=== PATIENT | female | born 1955 | race Caucasian/White ===

== ENCOUNTER → 2019-01-19 22:01 | Outpatient (CLI) | payer MEDICARE, SELFPAY ==
[2019-01-19 17:04] VITALS: BMI 22.3
[2019-01-19 22:40] LABS: Thyroid Stim Hormone (TSH) 2.03 uIU/mL (0.358-3.74)
== END ==
PROVIDERS: Referring Provider Nurse Practitioner; Visit Provider Nurse Practitioner
DX: L40.9 Psoriasis, unspecified (principal)
CPT/HCPCS: 84443

== ENCOUNTER 2021-12-17 15:00 | Outpatient (CLI) | payer MEDICARE, SELFPAY ==
--- NOTE | 2021-12-17 15:00 | POL_PTH ---
PATIENT: CASEY ARRIAGA LOC: [facility] U#:[id number] AGE/SX: 66/F ROOM: RE12/17/[address]: Dr. Janay George MD : 1955 BED: DIS: 12/17/2021 SPEC #: [id number] RECD: 12/18/21 15:37 STATUS: NITZA RELotus #: [id number] RENY: 12/17/21 15:[address]: Janay George DEPT: SURGICAL PATHOLOGY RECD BY: Vani Cameron ENTERED: 12/19/21 08:16 SP TYPE: Polyp OTHR DR: Inga Dockery Tissues: POLYP Procedures: Surgery Specimen Level IV HEADER OPERATION: Polypectomy PRE-OP DIAGNOSIS: Uterine polyp TISSUE SUBMITTED: Uterine polyp MICROSCOPIC DIAGNOSIS Uterine polyp, polypectomy: Consistent with inflamed benign endocervical polyp. See comment. MARC:nimo 12/19/2021 COMMENT The polyp shows extensive ulceration, acute and chronic inflammation and granulation tissue reaction. MICROSCOPIC DESCRIPTION Slides are reviewed. GROSS DESCRIPTION Received is one container labeled with the patient's name and not further designated. The specimen consists of a medley-pink polyp measuring 1.5 x 1 x 0.6 cm. The specimen is bisected and submitted entirely in one cassette. / SJ:rg 12/18/2021 :5 [facility]: [id number]
== END 2021-12-17 23:59 | disposition home or self-care (01) ==
PROVIDERS: Visit Provider Obstetrics & Gynecology
DX: N84.0 Polyp of corpus uteri (principal)
CPT/HCPCS: 88305

== ENCOUNTER 2021-12-24 12:15 | Outpatient (CLI) | payer MEDICARE, SELFPAY ==
--- NOTE | 2021-12-24 12:20 | US_ITS ---
STUDY: ULTRASOUND OF THE FEMALE PELVIS - COMPLETE REASON FOR EXAM: Female, 66 years old. uterine prolapse TECHNIQUE: Endovaginal. Transvaginal US was obtained to better visualized the ovaries. COMPARISON: None. FINDINGS: The uterus is anteverted and is in a midline position. The uterus measures 6.4 x 4 .8 cm. Normal uterine cervix. The endometrium measures 9 mm in thickness, and is fluid distended. There is thickened endometrium containing fluid and debris and calcifications. Calcification measures 6 x 5 mm.. There is no demonstrated myometrial mass. I.U.D. - The patient does not have an I.U.D. There is nonvisualization of the right ovary due to overlying bowel gas. The left ovary is visualized. The left ovary measures 1.6 x 1.7 cm. There is no left ovarian cyst or ovarian mass. There is no visualized left adnexal mass or complex lesion. There is normal arterial and normal venous vascularity. There is no fluid in the cul-de-sac. Urinary bladder volume is 329cc. US/Pelvic (Non ) IMPRESSION: There is endometrial thickening. This is abnormal for the patient''s age if she is postmenopausal. Direct visualization is recommended to exclude an underlying mass. During the examination, the uterus is prolapsed Electronically Signed: Warren Leija MD at 17:38 EDT ,
--- NOTE | 2021-12-24 12:20 | US_ITS ---
STUDY: ULTRASOUND OF THE FEMALE PELVIS - COMPLETE REASON FOR EXAM: Female, 66 years old. uterine prolapse TECHNIQUE: Endovaginal. Transvaginal US was obtained to better visualized the ovaries. COMPARISON: None. FINDINGS: The uterus is anteverted and is in a midline position. The uterus measures 6.4 x 4 .8 cm. Normal uterine cervix. The endometrium measures 9 mm in thickness, and is fluid distended. There is thickened endometrium containing fluid and debris and calcifications. Calcification measures 6 x 5 mm.. There is no demonstrated myometrial mass. I.U.D. - The patient does not have an I.U.D. There is nonvisualization of the right ovary due to overlying bowel gas. The left ovary is visualized. The left ovary measures 1.6 x 1.7 cm. There is no left ovarian cyst or ovarian mass. There is no visualized left adnexal mass or complex lesion. There is normal arterial and normal venous vascularity. There is no fluid in the cul-de-sac. Urinary bladder volume is 329cc. US/Transvaginal Non- IMPRESSION: There is endometrial thickening. This is abnormal for the patient''s age if she is postmenopausal. Direct visualization is recommended to exclude an underlying mass. During the examination, the uterus is prolapsed Electronically Signed: Warren Leija MD at 17:38 EDT ,
== END 2021-12-24 23:59 | disposition home or self-care (01) ==
LOC: OPUS 12:17
PROVIDERS: Visit Provider Obstetrics & Gynecology
DX: N81.4 Uterovaginal prolapse, unspecified (principal)
CPT/HCPCS: 76830; 76856

== ENCOUNTER 2021-12-31 12:35 | Outpatient (CLI) | payer MEDICARE, SELFPAY ==
--- NOTE | 2021-12-31 | EMB_PTH ---
PATIENT: CASEY ARRIAGA [id number] AGE/SX: 66/F ROOM: RE12/31/[address]: Dr. Janay George MD : 1955 BED: DIS: 12/31/2021 SPEC #: [id number] RECD: 12/31/21 12:32 STATUS: NITZA RELotus #: [id number] RENY: 12/31/21 00:[address]: Janay George DEPT: SURGICAL PATHOLOGY RECD BY: Vani Cameron ENTERED: 12/31/21 13:26 SP TYPE: ENDOM BX/C HARIS DR: Inga Dockery Tissues: Endometrium, NOS Procedures: Surgery Specimen Level IV HEADER OPERATION: Endometrial biopsy PRE-OP DIAGNOSIS: Thickened endometrium TISSUE SUBMITTED: Endometrial biopsy MICROSCOPIC DIAGNOSIS Endometrium, biopsy: Rare strips of benign superficial glandular mucosa. AM:nimo 01/01/2022 MICROSCOPIC DESCRIPTION Slides are reviewed. GROSS DESCRIPTION Received is one container labeled with the patient's name and not further designated. The specimen consists of multiple fragments of mucoid tissue that in aggregate measure 1 x 1 x 0.1 cm. The specimen is totally submitted in one cassette. / SJ:nimo 12/31/2021 TC:5 CPT: 59277
== END 2021-12-31 23:59 | disposition home or self-care (01) ==
LOC: LABSPEC 12:37
PROVIDERS: Referring Provider Obstetrics & Gynecology; Visit Provider Obstetrics & Gynecology
DX: R93.89 Abnormal findings on diagnostic imaging of other specified body structures (principal)
CPT/HCPCS: 88305

== ENCOUNTER → 2022-01-27 | Outpatient (CLI) | payer MEDICARE, SELFPAY ==
[2022-01-27 12:42] LABS: Absolute Lymphocyte Count 2.23 X10^3/uL (0.83-4.51); Absolute Neutrophil Count 3.5 X10^3/uL (2.0-7.7); Basophil# 0.05 X10^3/uL; Basophil% 0.8 % (0-1); Eosinophil# 0.27 X10^3/uL; Eosinophils% 4.1 % (0-5); Hematocrit 40.8 % (37-47); Hemoglobin 13.7 g/dL (12.0-15.0); Lymphocyte # 2.23 X10^3/ul (0.83-4.51); Lymphocyte % 33.6 % (19-41); Mean Corp Hgb Conc 33.6 g/dL (32-36); Mean Corpuscular Hgb 30.3 pg (27.0-32.0); Mean Corpuscular Volume 90.3 fL (81-99); Mean Platelet Vol. 10.8 fl (6.2-12.0); Monocyte# 0.62 X10^3/uL; Monocyte% 9.4 % (0-10); NRBC Flagged by Analyzer 0 % (0-5); Neutrophil # 3.45 X10^3/uL (2.7-7.7); Neutrophil % 51.9 % (47-70); Platelet Count 301 K/mm3 (150-450); RBC Distribution Width SD 42.5 fl (35.1-43.9); Red Blood Count 4.52 M/mm3 (4.2-5.4); White Blood Count 6.6 K/mm3 (4.4-11.0)
[2022-01-27 13:01] LABS: Magnesium 2.5 mg/dL (1.6-2.6)
[2022-01-27 13:07] LABS: ALB/GLOB Ratio 1.3 RATIO (0.9-2.4); AST(SGOT) 23 U/L (15-37); Alanine Aminotransfer ALT/SGPT 25 U/L (13-56); Alkaline Phosphatase 94 U/L (45-117); Anion Gap 5 (5-15); BUN 17 mg/dL (7-18); BUN/Creat Ratio 22.1 RATIO (10-20); Calcium,Total 8.9 mg/dL (8.5-10.1); Chloride 107 mmol/L (98-107); Creatinine, Serum 0.77 mg/dL (0.55-1.02); EST Glomerular Filtration Rate 79 mL/min (>60); Est Glom Filt Rate - Afr Amer 96 mL/min (>60); Globulin 3.1 g/dL (2.2-4.2); Glucose 98 mg/dL (74-106); Potassium 4.1 mmol/L (3.5-5.1); Protein, Total 7.1 g/dL (6.4-8.2); Sodium Level 140 mmol/L (136-145)
== END | disposition home or self-care (01) ==
LOC: LAB 11:59
PROVIDERS: Anesthesiology; Referring Provider Obstetrics & Gynecology; Visit Provider Obstetrics & Gynecology
DX: Z01.818 Encounter for other preprocedural examination (principal)
CPT/HCPCS: 36415; 80053; 83735; 85025; 86850; 86900; 86901

== ENCOUNTER 2022-02-03 15:38 | Observation (INO) | payer MEDICARE, SELFPAY ==
--- NOTE | 2022-01-27 12:18 | EKG12_ITS ---
Test Reason : PREOP Blood Pressure : / mmHG Vent. Rate : 077 BPM Atrial Rate : 077 BPM P-R Int : 132 ms QRS Dur : 074 ms QT Int : 390 ms P-R-T Axes : 069 046 039 degrees QTc Int : 441 ms Normal sinus rhythm Normal ECG Confirmed by BRAYAN GRANT, PATRICK ([id number]), editorial director RAN MILLIGAN ([id number]) on 01/28/2022 8:46:04 AM Referred By: PRISCILLA Confirmed By:PATRICK SCHMIDT MD
[2022-02-03] VITALS (11 sets, daily range): BP systolic 111–124; BP diastolic 64–77; PULSE 68–99; RESP 16–18; TEMP 36.2–36.9; O2SAT 94–100; BMI 26.3; BMI 26.4
[2022-02-03] MEDS: Lactated Ringers 1,000 ML 40 ML IV (06:39)
[2022-02-03] MEDS: Celecoxib 200 MG Capsule 400 MG PO (06:40)
[2022-02-03] MEDS: Acetaminophen 500 MG Tablet 1000 MG PO ×4 (06:40→23:26)
[2022-02-03] MEDS: Gabapentin 600 MG Tablet PO (06:40)
[2022-02-03] MEDS: Scopolamine 1mg/72hr Patch 1 PATCH TD (06:40)
[2022-02-03] MEDS: Enoxaparin 40 MG/0.4 ML Syringe SC (06:41)
--- NOTE | 2022-02-03 07:30 | HYST_PTH ---
PATIENT: CASEY ARRIAGA LOC: [facility] U#:[id number] AGE/SX: 67/F ROOM: MS308 RE02/03/[address]: Dr. Janay George MD : 1955 BED: 1 DIS: 02/04/2022 SPEC #: [id number] RECD: 02/03/22 10:11 STATUS: NITZA ISRAELLotus #: [id number] RENY: 02/03/22 07:[address]: Janay George DEPT: SURGICAL PATHOLOGY RECD BY: Vani Cameron ENTERED: 02/03/22 10:37 SP TYPE: HYSTERECT OTHR DR: Inga Dockery Tissues: Uterus, NOS Procedures: Surgery Specimen Level V HEADER OPERATION: ERAS, vaginal hysterectomy, salpingo-oophorectomy, repair PRE-OP DIAGNOSIS: Prolapse of uterus, thickened endometrium, stress incontinence, nocturia TISSUE SUBMITTED: Uterus, left fallopian tube and ovary MICROSCOPIC DIAGNOSIS Uterus, left fallopian tube and ovary, hysterectomy and left salpingo-oophorectomy: Cervix ? chronic cystic cervicitis. Endometrium ? focal simple endometrial hyperplasia without atypia. Endometrial polyp ? benign endometrial polyp with focal simple endometrial hyperplasia without atypia and cystic changes. Myometrium ? intramural leiomyomas. - Focal adenomyosis. Left fallopian tube - no pathologic diagnosis. Left ovary - no pathologic diagnosis. See comment. SJ:nimo 02/04/2022 COMMENT Focal complex hyperplasia without atypia is also noted. Please make reference to previous specimen ([id number]) endometrium, biopsy with diagnosis of ?rare strips of benign superficial glandular mucosa.? Case has been reviewed in consultation with Dr. Reynolds who concurs with the above diagnosis. IDC:AM MICROSCOPIC DESCRIPTION Slides are reviewed. GROSS DESCRIPTION Received in fixative is one container labeled with the patient's name and designated uterus, left fallopian tube and ovary. The specimen consists of a hysterectomy specimen consisting of uterus with cervix and detached fallopian tube and ovary identified as left fallopian tube and ovary. The uterus with cervix weighs 61 gm and measures 10 x 5 x 3 cm. The serosal surface is medley, glistening. The ectocervical mucosa is unremarkable. The external os is pinpoint in contour. The endocervical canal measures 4 cm in length and the endocervical mucosa is unremarkable. The triangular endometrial cavity measures up to 5 cm in length and 2 cm in width. A sessile endometrial polyp is noted in the anterior uterine wall measuring 1.5 x 1 x 0.5 cm. The myometrial wall underneath the polyp is not indurated. The rest of the endometrium measures 0.1 cm in thickness. Sections of the uterine wall reveal two nodular masses measuring 0.2 and 1 cm in greatest dimension. The uterine wall measures up to 1 cm in thickness. The fallopian tube measures 3.5 cm in length and 0.5 cm in diameter. The fimbrial end is identified. No tubo-ovarian adhesions are noted. Sections reveal unremarkable cut surfaces. The adjacent ovary measures 1.5 x 0.5 x 0.5 cm. Sections reveal unremarkable cut surfaces. [employer] sections are submitted in nine cassettes as follows: 1 - anterior cervix, 2 - posterior cervix, 3 & 4 - anterior uterine wall, entire endometrial polyp, 5 & 6 - posterior uterine wall, 7 - nodular masses, 8 - fallopian tube and ovary, 9 - rest of the ovary. The ovary is submitted in entirety. / MARC:nimo 02/03/2022 TC:5 CPT: 26319
--- NOTE | 2022-02-03 07:37 | PCM.HP.BLA ---
History and Physical Date of Admission: 02/03/22 Vital Signs 12/31/21 09:19 Height 5 ft 2 in Weight: 143 lb BMI 26.2 BP 132/88 H Intake Visit Reasons: EMB Chief Complaint: EMB Is patient in pain?: No Allergies aspirin Allergy (Severe, Verified 12/17/21 14:19) hives ciprofloxacin [From Cipro] Allergy (Intermediate, Verified 12/17/21 14:19) itching sulfamethoxazole [From Bactrim] Allergy (Intermediate, Verified 12/17/21 14:19) itching, rash trimethoprim [From Bactrim] Allergy (Intermediate, Verified 12/17/21 14:19) itching, rash Medications cholecalciferol (vitamin D3) 125 mcg (5,000 unit) tablet 5,000 unit PO DAILY 06/08/18 [History Confirmed 12/31/21] lactobacillus combination no.4 3 billion cell capsule 3,000 mmu cells PO DAILY 06/08/18 [History Confirmed 12/31/21] B-complex with vitamin C 1 tab PO DAILY 06/21/18 [History Confirmed 12/31/21] Triple [place] Complex PO 01/25/21 [History Confirmed 12/31/21] calcipotriene 0.005 % topical cream 1 applic TOPICAL DAILY #60 gm 01/25/21 [Rx Confirmed 12/31/21] halobetasol propionate 0.05 % topical cream 1 applic TOPICAL BID PRN #45 g 01/25/21 [Rx Confirmed 12/31/21] sambucus Black Elderberry PO 01/25/21 [History Confirmed 12/31/21] Is last menstrual period known: No Post menopausal: Yes Patient : No : No PFSH PFSH Medical History Eczema Migraines Psoriasis Surgical History H/O tubal ligation Family History Other Diabetes Heart disease Leukemia Thyroid disorder Social History household members: none current occupational status: retired Smoking Status: Never smoker alcohol intake: never substance use type: does not use what type of physical activity do you participate in: walking seatbelt use: always do you feel safe at home: Yes additional social history: Pregancy History 3 Elective abortions Hx Para 3 Spontaneous abortions Hx # Term Pregnancies Ectopic pregnancies Hx # Pregnancies Multiple births # of living children 3 HPI EMB Details: CASEY ARRIAGA is a 66 year old who presents for preop and emb. emb done due to thickened endometrium on us. preivous polyp WNL. Female Reproductive History Menopausal Symptoms: No night sweats ROS Const Constitutional: Reports system reviewed and no additional complaints, except as documented; Denies fatigue, headache(s) or night sweats ENT ENT: Reports system reviewed and no additional complaints, except as documented Cardio Card: Denies chest pain Resp Resp: Denies cough or dyspnea GI GI: Denies abdominal pain, bloating, change in stool character, constipation, fecal incontinence, nausea or vomiting : Reports prolapse symptoms, urinary incontinence and vaginal dryness; Denies nipple discharge, pelvic pain, sexual dysfunction, urinary frequency, urinary urgency, vaginal discharge, vaginal odor or vaginal pruritus Musc Musc: Reports back pain; Denies arthralgias or muscle weakness Skin Skin/Breast: Reports alopecia; Denies change in hair, dry skin, breast mass, breast pain, breast skin changes or nipple discharge Neuro Neuro: Reports system reviewed and no additional complaints, except as documented Psych Psych: Denies anxiety or depression Endo Endo: Denies cold intolerance, excessive sweating, heat intolerance or polydipsia Adithya/Lymph Hematologic/Lymphatic: Denies easy bleeding, Denies easy bruising and Denies lymphadenopathy Exam Const General: cooperative, healthy appearing, comfortable, no acute distress and well developed Orientation: alert [facility] Head: normal to inspection, normocephalic and atraumatic Ears: hearing grossly normal bilaterally and external ears normal Nose: external nose normal and nares normal Face and sinus: normal facial exam Neck Neck: normal visual inspection, full ROM, no lymphadenopathy and trachea midline Thyroid: thyroid normal Chest Chest palpation & inspection: normal inspection of the chest Resp Effort & Inspection: normal respiratory effort Auscultation: clear to auscultation bilaterally Cardio Rate: regular rate Rhythm: regular rhythm Heart Sounds: S1 normal and S2 normal GI Inspection: normal to inspection and non-distended Palpation: soft, no hepatosplenomegaly, no hepatomegaly, not rigid and nontender General: bladder normal to palpation External Female Exam: abnormal external appearance (atrophic introitus), normal appearance of the urethra and no lesions Urethra: normal appearance of the urethra Speculum Exam - Vagina: abnormal appearance of the vagina, normal vaginal discharge, vagina atrophic and no lesions Speculum Exam - Cervix: normal appearance of the cervix (polyp seen, removed without complications, silver nitrate) Bimanual Exam- Vagina & Uterus: normal bimanual exam, uterine size normal, bladder normal to palpation, uterine shape normal, uterine mobility normal and non-tender Bimanual Exam- Adnexa, other: normal adnexae, no masses, rectocele, cystocele and vaginal apex descent (complete procidentia) Pelvic Support: cystocele, rectocele and vaginal apex descent (complete procidentia) Musc Other: gross motor intact no deficits, full bilateral strength Skin General: no rashes or lesions noted and atrophy Neuro General: patient alert, patient awake, moves all extremities and no focal motor deficits Motor: muscle tone normal throughout Extrem General: normal to inspection and no pedal edema Psych Appearance: grossly normal Mental Status: mental status grossly normal Affect: normal affect Speech and Movement: speech and movement normal Office Procedures Endometrial Biopsy Endometrial Biopsy Test: Yes Not Applicable Consent Signed: Yes Time out checklist: patient, procedure, site marked/identified, positioning of patient, supplies available, allergies confirmed and team agrees on procedure Time out time: 10:03 tenaculum used: No dilator used: No Details: Cervix prepped with betadine and pipelle inserted into uterus without complication. Specimen obtained and sent to lab for analysis. All instruments removed from vagina without complications. Excellent hemostasis noted. Coding Level of Care Code No Charge Diagnoses Prolapse of uterus N81.4 Thickened endometrium R93.89 CPT Codes Endometrial Biopsy (81647) Assessment and Plan Assessment and Plan (1) Prolapse of uterus: Status: Acute Comment: complete procidentia, combo tvhbso with angle Plan - Dr. Janay George MD: After discussing the patient's diagnosis and treatment plan options, patient wishes to proceed with surgical management. I have discussed with the patient the risks, benefits, and alternatives of the procedure which include but are not limited to risks of anesthesia, bleeding, infection, possible damage to bowel, bladder, or surrounding vasculature which could lead to additional surgery to evaluate any complications. Patient agrees to procedure and wishes to proceed. ACOG/uptodate references given for additional information regarding procedure. (2) Thickened endometrium: Plan Details Other Orders: Orders: Endometrial Biopsy Today UPDATE- I have seen the patient and performed any clinically relevant updates to the history and physical exam. Janay George MD
--- NOTE | 2022-02-03 07:40 | OP.PCM_ITS ---
Problems Associated Problem List Diagnoses (1) Stress incontinence: (2) Incomplete uterovaginal prolapse: (3) Prolapse of uterus: Report of Operation Pre-Operative Diagnosis: see PL Post-Operative Diagnosis: same Surgery/Procedure Performed:: TVH LSO Description of Surgical Findings:: nl uterus tubes ovaries Type of Anesthesia: General Specimen's removed: uterus, left tube and ovary Drains: fu Fluids Replaced: crystalloid Description of Procedure: Patient was taken to the operating room and was placed under general anesthesia was prepped and draped in normal sterile fashion in the dorsal lithotomy position. Preoperative antibiotics and SCDs and Fu catheter was placed inside the bladder. Weighted speculum was placed in the vagina and the anterior and posterior lip of the cervix was grasped with 2 Tessie clamps and circumferentially injected with dilute vasopressin. A circumferential incision was made with a scalpel and the posterior cul-de-sac was entered into sharply and a longneck speculum was placed. The anterior cul-de-sac was also dissected down and entered into sharply and the uterosacral ligaments were clamped cut and suture ligated bilaterally followed by the cardinal ligaments which were Clamped cut and suture ligated bilaterally with 0 Monocryl. The uterus serially descended and progressive bites were taken bilaterally up to the level of the utero-ovarian ligament bilaterally which was clamped transected and double liga taty with 0 Monocryl suture and 0 Vicryl free tie. right tube and ovary was not seen due to bowel adhesions in the right ovarian fossa, but palpated to be normal and patient had been counseled previously due to the risk of possibly needing to be left in due to limited operative exposure. the left fallopian tubes and ovary was well visualized and noted be within normal limits and the IP ligament was transected across the base with a iqra clamp, then the ovary and tube was removed and the pedicle double ligated with O monocryl and o vicryl. Excellent hemostasis was noted. The vagina was closed with [id number] 0 Vicryl pop offs including the posterior and anterior peritoneum in the reapproximation. Excellent hemostasis was noted. Then Dr. Willingham began her portion of the procedure. Grafts/Implants Used: none Complications none Admit VTE Documentation VTE Present on Admission: No VTE Mechan Device Prophylaxis: SCD's VTE Pharm Prophylaxis ordered?: Yes Multi Select Codes Urinary/Genital Urinary/Genital CPT Codes: 80532 TVH+BS/O <250gr uterus
--- NOTE | 2022-02-03 07:43 | PCM.DC ---
Discharge Instructions Diet Discharge Diet: No restrictions Activity Discharge Activity: Return to Normal Activity, May Not Drive (while taking narcotic pain medications.) and May Shower May resume sexual activity in: 6-8 weeks Dressing / Incision Call your doctor if your incision/area has: Continuous Slow Oozing, Sudden Increased Bleeding, Increased Pain/ Swelling, Increased Redness and Foul Smelling Discharge Call your doctor if you observe: Fever of 101 or Higher, Inability to urinate, Inability to have a bowel movement and Using more than 1 pad per hour Follow Up Care Please Follow Up With: Janay George MD Test Results: Test results from this visit will be discussed in further detail at your follow-up appointment, if applicable. Discharge Plan Admission Primary Reason for Your Visit: vaginal hysterectomy Attending Provider: Janay George Primary Care Provider: Inga Dockery Discharge Orders/Prescriptions Prescriptions: New oxycodone-acetaminophen [Percocet] 5-325 mg tablet 1 tab PO Q6H PRN (Reason: pain) 7 Days Qty: 20 RF: 0 Continued cholecalciferol (vitamin D3) 5,000 unit tablet 5,000 unit tablet 5,000 unit PO DAILY RF: 0 lactobacillus combination no.4 [Probiotic] 3 billion cell capsule 3,000 mmu cells PO DAILY RF: 0 B-complex with vitamin C tablet 1 tab PO DAILY RF: 0 sambucus Black Elderberry 1 dose PO DAILY RF: 0 Triple [place] Complex 1 dose PO DAILY RF: 0 halobetasol propionate 0.05 % cream 1 applic TOPICAL BID PRN (Reason: psoriasis lower legs) Qty: 45 RF: 12 calcipotriene 0.005 % cream 1 applic TOPICAL DAILY Qty: 60 RF: 12 Zyrtec 10 mg Capsule 10 mg PO DAILY RF: 0 Referrals / Follow Up: Inga Dockery [Primary Care Provider] - Disposition Disposition (needs filled in before D/C Order can be placed): Home, Self Care
[2022-02-03] MEDS: Cefazolin 2 GM in 0.9% Normal Saline 100 ML IV (07:47)
--- NOTE | 2022-02-03 08:11 | PCM.OPRPT ---
Problems Associated Problem List Diagnoses (1) Incomplete uterovaginal prolapse: (2) Stress incontinence: Report of Operation Date of Procedure: 02/03/22 Pre-Operative Diagnosis: Incomplete uterovaginal prolapse, stress incontinence Post-Operative Diagnosis: same Surgery/Procedure Performed:: Anterior repair with dermis, bilateral sacrospinous ligament fixation, posterior repair, mid urethral sling, cystoscopy with bilateral ureteral catheterization Surgeon: Anastasia Willingham Type of Anesthesia: General Specimen's removed: None Estimated Blood Loss (mL): 50cc Description of Procedure: The patient is a 67-year-old female with uterovaginal prolapse and stress incontinence who presents for surgical intervention. She has undergone urodynamics and cystoscopy. Informed consent has been obtained. The patient was taken to the operating room and placed on the operating room table. Anesthesia monitored the head, neck, airway, IV access and vital signs throughout the case. Once anesthesia was appropriately administered the patient was appropriately positioned and padded and secured to the table. She was placed into dorsal lithotomy in Trendelenburg. She was prepped and draped in usual sterile sterile fashion. Ibarra catheter was then inserted and the bladder remained to straight drain throughout the case. Dr. George proceeded with her portion of the procedure please see her report for full details. At this time the anterior vaginal wall was isolated and injected submucosally for hydrostatic dissection and hemostatic control. A midline vertical incision was made approximately 2 cm in length. Sharp and blunt dissection was performed on either side and in the midline until the bladder neck, apex and bilateral sacrospinous ligaments were freed from surrounding tissues. The Capio device was then used to pass Ethibond sutures through the sacrospinous ligaments bilaterally. A piece of dermis was cut to size with Barnes and the Ethibond was taken through the dermis and through the vaginal mucosa full-thickness at the apex. The dermis was sutured into position bilaterally and at the area of the bladder neck. It was also sutured into position at the apex using interrupted 2-0 Vicryl. At this time the dermis was trimmed. The midline incision was closed using running interlocking 2-0 Vicryl. The Ethibond sutures were then tied into position and the prolapse was reduced. Attention was then turned towards the posterior wall. The defect here was not as great as anteriorly. At this time the submucosa was once again injected for hydrostatic dissection and hemostatic control. A midline incision was made. The left apex did not seem to be as well supported as the right, so the decision was made to place a second sacrospinous ligament suture on that side. This was done once again using the Capio device and an Ethibond suture. The suture was brought through the vaginal mucosa at the apex. In the midline, the small rectocele defect was repaired directly bringing the rectovaginal fascia together in a 2 layer closure. The midline incision was closed using running interlocking 2-0 Vicryl. The Ethibond suture was tied into position and the apex was fully supported. The mid urethra was isolated and injected submucosally. A 1.5 cm midline incision was made and sharp and blunt dissection was performed on either side of the urethra with care being taken to avoid entrance into the urethra. Using the trocar, the [place] mid urethral sling was placed through the transobturator fascia bilaterally. The mesh was then placed flat against the urethra without tension using the tensioning suture. The midline incision was closed using running interlocking 2-0 Vicryl. At this time the patient was taken out of Trendelenburg and the Ibarra catheter was removed. The cystoscope was inserted through the urethra under direct visualization into the urinary bladder. There were no areas of injury identified, no foreign objects including suture material or mesh. There is no evidence of hematuria. At this time a whistle-tip catheter was inserted first into the patient's right ureter to 15 cm without evidence of injury or obstruction. The same process was repeated on the left side where the catheter was inserted up to 20 cm. Once again there is no evidence of obstruction or injury. At this time the cystoscope was removed and the Ibarra catheter was replaced. The vagina was packed with Premarin cream and vaginal packing. All counts were correct. The patient was then awakened and taken to the recovery room in good condition. There were no complications during this procedure Grafts/Implants Used: Dermis, Altis Complications None Admit VTE Documentation VTE Present on Admission: Yes VTE Mechan Device Prophylaxis: SCD's VTE Pharm Prophylaxis ordered?: Yes
--- NOTE | 2022-02-03 08:12 | DCINST_ITS ---
Discharge Instructions Diet Discharge Diet: No restrictions Activity Discharge Activity: May Shower May resume sexual activity in: 8 weeks Lifting Restrictions: 5 pounds Additional Activity Instructions:: no exercise, strenuous activity, swimming, hot tubs or tub bathing, no sexual activity Dressing / Incision Call your doctor if your incision/area has: Continuous Slow Oozing, Sudden Increased Bleeding, Increased Pain/ Swelling, Increased Redness and Foul Smelling Discharge Call your doctor if you observe: Fever of 101 or Higher, Inability to urinate, Inability to have a bowel movement and Using more than 1 pad per hour Follow Up Care Please Follow Up With: Janay George MD When: With in 2 weeks Test Results: Test results from this visit will be discussed in further detail at your follow-up appointment, if applicable. Discharge Plan Admission Primary Reason for Your Visit: vaginal hysterectomy Attending Provider: Janay George Primary Care Provider: Inga Dockery Discharge Orders/Prescriptions Prescriptions: New oxycodone-acetaminophen [Percocet] 5-325 mg tablet 1 tab PO Q6H PRN (Reason: pain) 7 Days Qty: 20 RF: 0 cephalexin [cephalexin] 500 MG capsule 500 mg PO Q12 3 Days Qty: 6 RF: 0 Continued cholecalciferol (vitamin D3) 5,000 unit tablet 5,000 unit tablet 5,000 unit PO DAILY RF: 0 lactobacillus combination no.4 [Probiotic] 3 billion cell capsule 3,000 mmu cells PO DAILY RF: 0 B-complex with vitamin C tablet 1 tab PO DAILY RF: 0 sambucus Black Elderberry 1 dose PO DAILY RF: 0 Triple [place] Complex 1 dose PO DAILY RF: 0 halobetasol propionate 0.05 % cream 1 applic TOPICAL BID PRN (Reason: psoriasis lower legs) Qty: 45 RF: 12 calcipotriene 0.005 % cream 1 applic TOPICAL DAILY Qty: 60 RF: 12 Zyrtec 10 mg Capsule 10 mg PO DAILY RF: 0 Referrals / Follow Up: Inga Dockery [Primary Care Provider] - Disposition Disposition (needs filled in before D/C Order can be placed): Home, Self Care
[2022-02-03] MEDS: Ondansetron 4 MG/2 ML Vial IV (08:15)
[2022-02-03] MEDS: Vasopressin 20 UNITS/ML Vial (09:25)
[2022-02-03 09:46] LABS: Bedside Glucose 129 mg/dL (74-106)
[2022-02-03] MEDS: Estrogens,Conj. 1 Tube 1 DOSE (10:28)
[2022-02-03] MEDS: Lactated Ringers @ 70 MLS/HR 70 ML IV (11:03)
[2022-02-03] MEDS: Docusate Sodium 100 MG Capsule PO ×2 (14:41→20:50)
[2022-02-03] MEDS: Lactated Ringers 1,000 ML 70 ML IV (18:44)
[2022-02-04 03:24] VITALS: BP 95/59; PULSE 96; RESP 18; TEMP 36.6; O2SAT 96
[2022-02-04] MEDS: Acetaminophen 500 MG Tablet 1000 MG PO (05:51)
[2022-02-04 06:19] LABS: Hematocrit 32.2 % (37-47); Hemoglobin 10.7 g/dL (12.0-15.0); Mean Corp Hgb Conc 33.2 g/dL (32-36); Mean Corpuscular Hgb 30.4 pg (27.0-32.0); Mean Corpuscular Volume 91.5 fL (81-99); Mean Platelet Vol. 10.8 fl (6.2-12.0); Platelet Count 253 K/mm3 (150-450); RBC Distribution Width CV 13.2 % (11.6-14.6); RBC Distribution Width SD 44.2 fl (35.1-43.9); Red Blood Count 3.52 M/mm3 (4.2-5.4); White Blood Count 12.3 K/mm3 (4.4-11.0)
[2022-02-04 07:17] VITALS: O2SAT 95
--- NOTE | 2022-02-04 08:02 | PCM.PN.GU ---
Subjective Subjective Had a good night. No nausea or vomiting. Has been ambulatory. Objective Data Objective Data Vital Signs: Vital Signs Temp Pulse Resp BP Pulse Ox 98 F 96 18 95/59 L 95 02/04/22 03:24 02/04/22 03:24 02/04/22 03:24 02/04/22 03:24 02/04/22 07:17 Oxygen Flow Rate (L/min) 2 Oxygen Delivery Method Room Air Weight: 65.3 kg Body Mass Index (BMI) 26.4 Intake & Output: Intake and Output for Last 24 Hours 02/02/22 02/03/22 02/04/22 23:59 23:59 23:59 Intake Total 2152.17 / 2152.17 658 / 658 Output Total 875 / 875 1100 / 1100 Balance 1277.17 / 1277.17 -442 / -442 Lab / Micro Data Result Diagrams: 02/04/22 05:40 Labs: Laboratory Results - last 24 hr 02/03/22 06:22: POC Glucose 129 H 02/04/22 05:40: WBC 12.3 H, RBC 3.52 L, Hgb 10.7 L, Hct 32.2 L, MCV 91.5, MCH 30.4, MCHC 33.2, RDW Std Deviation 44.2 H, RDW Coeff of Latanya 13.2, Plt Count 253, MPV 10.8 Micro: Microbiology 01/31/22 12:45 Interface Orders SARS-CoV-2 Antigen (Rapid) - Final Physical Exam Const alert, oriented x3 and no apparent distress GI soft to palpation, non-tender and non-distended Narrative: Ibarra catheter and vaginal packing removed without incident. Assessment & Plan Assessment/Plan (1) Incomplete uterovaginal prolapse: (2) Stress incontinence: PLAN: Repeat hemoglobin. Trial of void today.
[2022-02-04 08:06] VITALS: BP 112/60; PULSE 90; RESP 16; TEMP 36.5; O2SAT 97
--- NOTE | 2022-02-04 08:12 | PCM.PN.OB ---
Subjective Subjective Patient doing well without complaints. Tolerating PO. Ambulating without difficulty. Denies chest pain, shortness of breath, calf pain/swelling, fevers, chills, lightheadedness. Objective Data Objective Data Vital Signs: Vital Signs Temp Pulse Resp BP Pulse Ox 97.7 F L 90 16 112/60 97 02/04/22 08:06 02/04/22 08:06 02/04/22 08:06 02/04/22 08:06 02/04/22 08:06 Oxygen Flow Rate (L/min) 2 Oxygen Delivery Method Room Air Weight: 143 lb 15.39 oz Body Mass Index (BMI) 26.4 Intake & Output: Intake and Output for Last 24 Hours 02/02/22 02/03/22 02/04/22 23:59 23:59 23:59 Intake Total 2152.17 / 2152.17 658 / 658 Output Total 875 / 875 1100 / 1100 Balance 1277.17 / 1277.17 -442 / -442 Lab / Micro Data Result Diagrams: 02/04/22 05:40 Labs: Laboratory Results - last 24 hr 02/03/22 06:22: POC Glucose 129 H 02/04/22 05:40: WBC 12.3 H, RBC 3.52 L, Hgb 10.7 L, Hct 32.2 L, MCV 91.5, MCH 30.4, MCHC 33.2, RDW Std Deviation 44.2 H, RDW Coeff of Latanya 13.2, Plt Count 253, MPV 10.8 Micro: Microbiology 01/31/22 12:45 Interface Orders SARS-CoV-2 Antigen (Rapid) - Final ROS Constitutional Constitutional: Reports systems reviewed and no addt'l complaints, except as documented Cardiovascular Cardiovascular: Reports systems reviewed and no addt'l complaints, except as documented Respiratory/Chest Respiratory/Chest: Reports systems reviewed and no addt'l complaints, except as documented Gastrointestinal Gastrointestinal: Reports systems reviewed and no addt'l complaints, except as documented Physical Exam Const alert, oriented x3 and no apparent distress HEENT Head and Scalp: atraumatic Resp normal respiratory effort GI soft to palpation and non-tender Assessment & Plan (1) History of total vaginal hysterectomy (TVH): COMMENT: combo case with Maulik. ROSASO. right ovarian fossa adhesions PLAN: patient is s/p tvhlso POD 1 1. routine ERAS protocol postop care- increase ambulation, encourage oral intake and oral control of pain. repeat Hg to follow, abdomen soft and patient stable.
[2022-02-04 10:30] LABS: Absolute Lymphocyte Count 2.35 X10^3/uL (0.83-4.51); Absolute Neutrophil Count 9.2 X10^3/uL (2.0-7.7); Basophil# 0.02 X10^3/uL; Basophil% 0.2 % (0-1); Eosinophil# 0.03 X10^3/uL; Eosinophils% 0.2 % (0-5); Hematocrit 34.4 % (37-47); Hemoglobin 11.3 g/dL (12.0-15.0); Lymphocyte # 2.35 X10^3/ul (0.83-4.51); Lymphocyte % 18.5 % (19-41); Mean Corp Hgb Conc 32.8 g/dL (32-36); Mean Corpuscular Hgb 30.1 pg (27.0-32.0); Mean Corpuscular Volume 91.5 fL (81-99); Mean Platelet Vol. 10.1 fl (6.2-12.0); Monocyte# 1.08 X10^3/uL; Monocyte% 8.5 % (0-10); NRBC Flagged by Analyzer 0 % (0-5); Neutrophil # 9.21 X10^3/uL (2.7-7.7); Neutrophil % 72.3 % (47-70); Platelet Count 278 K/mm3 (150-450); RBC Distribution Width CV 13.1 % (11.6-14.6); RBC Distribution Width SD 44.1 fl (35.1-43.9); Red Blood Count 3.76 M/mm3 (4.2-5.4); White Blood Count 12.7 K/mm3 (4.4-11.0)
[2022-02-04] MEDS: Docusate Sodium 100 MG Capsule PO (10:40)
[2022-02-04] MEDS: oxyCODONE 5 MG Tablet PO (12:10)
[2022-02-04 13:42] VITALS: BP 119/70; PULSE 102; RESP 16; TEMP 36.8; O2SAT 97
== END 2022-02-04 14:23 | disposition home or self-care (01) ==
LOC: MS3 18:48 → SDC 02-04 00:07
PROVIDERS: Admitting Provider Obstetrics & Gynecology; Referring Provider Obstetrics & Gynecology; Visit Provider Obstetrics & Gynecology
PROC: (CPT 58260; principal; 2022-02-03 07:10)
DX: N81.2 Incomplete uterovaginal prolapse (principal); N73.6 Female pelvic peritoneal adhesions (postinfective); N39.3 Stress incontinence (female) (male); N85.01 Benign endometrial hyperplasia; D25.1 Intramural leiomyoma of uterus; R35.1 Nocturia; N76.0 Acute vaginitis; N95.2 Postmenopausal atrophic vaginitis; Z79.899 Other long term (current) drug therapy
CPT/HCPCS: 58262; 57260; 57288; 36415; 82962; 85025; 85027; 87426; 88307; 93005; 99218; C9803; J7120; C1758; G0378; J2405; J3475

== ENCOUNTER → 2022-02-17 | Outpatient (CLI) | payer MEDICARE, SELFPAY | END | disposition home or self-care (01) | LOC: LABSPEC 02-18 08:42 | PROVIDERS: Referring Provider Nurse Practitioner Women's Health; Visit Provider Nurse Practitioner Women's Health | DX: N76.0 Acute vaginitis (principal) | CPT/HCPCS: 87070; 87205 ==

== ENCOUNTER 2022-10-16 13:00 | Outpatient (RCR) | payer MEDICARE, SELFPAY ==
--- NOTE | 2022-08-15 15:26 | HP.PTEVAL_ITS ---
Patient's Visit Information CASEY ARRIAGA is a 67 year old F referred to Physical Therapy by Dr. Anastasia Miles MD with a diagnosis of CYSTOCELE - S/P RECONSTRUCTION. Date of Evaluation: 08/15/22 Physical Therapist: Xi Cueto PT, Cert MDT - Visit Plan Frequency: 1x/Week Duration: 6-8 Plan: MANUAL PF THERAPY FOR STRENGTHENING, LENGTHENING/RELAXATION AND ENDURANCE TRAINING. URINARY RETENTION AND FREQUENCY EDUCATION. HEALTHY BLADDER HABBIT EDUCATION. TRAINING IN COORDINATION OF PELVIC FLOOR MUSCULATURE WITH HIP AND CORE (TRANSVERSE ABDOMINUS) MUSCULATURE. POSTURE CORRECTION/STRENGTHENING. CORE STRENGTHENING. DARRON LE ROM, STRETCHING AND STRENGTHENING. TRAINING IN ABDOMINAL CAVITY PRESSURE MGMT WITH ADL'S. - Subjective DIAGNOSIS: CYSTOCELE - S/P RECONSTRUCTION END OF FEBRUARY 2022. Work/Leisure: RETIRED. I LIKE TO WALK. PATIENT ALSO LIKES TO BUY AND SELL THINGS FOR A HOBBY. Disability: NO. Present symptoms: INTERMITTENT URINARY FREQUENCY. NO LOW BACK OR PELVIC PAIN. NO URINARY LEAKING OR OTHER INCONTINENCE. Present s samir: PROLAPSE SX'S STARTED JANUARY 2022. Is it getting better, worse or staying the same: FREQUENCY IS BETTER. PATIENT REPORTS DR. MILES NOTICED SOME INCREASE IN THE PROLAPSE SINCE SURGERY AND THEREFORE SENT HER TO PT. Commenced as a result of: ORIGINALLY SHE REPORTS THE PROLAPSE OCCURED FOR NO APPARENT REASON. PATIENT REPORTS SHE HAD AN EPISODE OF HARD COUGHING WITH RESPIRATORY INFECTION ABOUT 2 WEEKS AGO AND SHE THINKS THAT MIGHT HAVE CAUSED HER TO PROLAPSE MORE. Symptoms at onset: IT SEEMED LIKE A LOT OF PELVIC PRESSURE THEN FELT A LARGE BULGE IN VAGINAL AREA WIPING AFTER MICTURITION A FEW WKS LATER. Worse: DRINKING ROOTBEER. Better: UNKNOWN. Disturbed sleep: YES - GETTING UP TO VOID ABOUT 2 TIMES A NIGHT. Previous history/Previous treatment: UNREMARKABLE. Treatment this episode: SX IN FEBRUARY 2022. Coughing/sneezing/straining: NO URINE LEAKING. Gait: NORMAL. WALKING ABOUT 1-2 TIMES A WK X APPROX 1 MILE FOR EX. Bowel or Bladder Dysfunction: PATIENT DENIES. Accidents: NO. Unexplained weight loss: NO. Imaging: NONE RECENT EXCEPT FOR SURGERY. PMH/Recent major surgery: LIGHT CASE OF COVID MAY 2022. PATIENT REPORTS SHE IS IN GOOD HEALTH. - Objective Sitting/Standing Posture: FAIR. RECUCED LUMBAR LORDOSIS BUT NO RELEVENT LATERAL SHIFT. Active Correction of posture: NE. Other Observations: INDEP GAIT AND TRANSFERS. Sensory deficit: DARRON LE LIGHT TOUCH SENSATION GROSSLY INTACT AND SYMMETRICAL. ROM deficit: TIGHT DARRON HS'S AND GASTROC SOLEUS COMPLEX'S. TIGHT DARRON HIP ADDUCTORS AND HIP FLEXORS. Motor deficit: DARRON LE'S GROSSLY 5/5 WITH MMT'ING EXCEPT HIPS 4/5. Dural Signs: NEGATIVE DARRON LE'S. Lumbar mvmt loss: flex - MIN. ext - MOD. R SG - MOD. L SG - MOD. PATIENT DENIES PAIN WITH LUMBAR ROM TESTING ALL PLANES. Core strength: POOR. Palpation: INTERNAL VAGINAL PELVIC FLOOR EXAM REVEALS PF STRENGTH 3/5 WITH 5 SEC ENDURANCE X 3 REPS. NO PELVIC FLOOR TENDERNESS. TREATMENT: INITIATED HEP WITH DIAPHRAGMATIC BREATHING AND QUICK FLICK KEGELS X 8, 3 TIMES A DAY. WRITTEN HEP INSTRUCTIONS PROVIDED. - Goals Goal 1:: PATIENT WILL SUCCESSFULLY DELAY VOIDING FOR 30 MINUTES WHEN URGENCY OCCURS Goal Time Frame: 2-4 Weeks Goal 2:: PATIENT WILL HAVE INCREASED PELVIC FLOOR MUSCLE STRENGTH GRADE TO 5/5 Goal Time Frame: 6-8 Weeks Goal 3:: PATIENT WILL DEMONSTRATE 10 CONSISTENT AND CONSECUTIVE 10 SECOND PELVIC FLOOR MUSCLE CONTRACTIONS TO DEMONSTRATE IMPROVED PELVIC FLOOR ENDURANCE. Goal Time Frame: 6-8 Weeks Goal 4:: DEVELOP HEALTHY FLUID INTAKE HABITS Goal Time Frame: 2-4 Weeks Goal 5:: NORMALIZE VOIDING FREQUENCEY Goal Time Frame: 4-6 Weeks Goal 6:: PATIENT WILL BE INDEP WITH A HEP/HOME INSTRUCTIONS FOR CONTINUED IMPROVEMENT ONCE FORMAL PHYSICAL THERAPY CONCLUDES. Goal Time Frame: 6-8 Weeks - Anticipated Interventions Patient/Client Instruction: Educate patient on: Condition, Plan of Care, Risk Factors For the Purpose of:: To improve self management Therapeutic Exercise to Include: Strength training, Endurance training, Body mechanics, Postural training, Flexibilty training, Neuromotor development For the Purpose of:: To improve muscle performance and motor function, To increase tolerance to activity/condition/position, To improve ability of physical actions for home/community/work/leisure Thank you for the opportunity to evaluate your patient. For Medicare and Medicare HMO plans, please review the plan of care and approve it. It will need to be FAXED BACK to us at [phone] for Medicare purposes. For Medicare only, by signing this I certify the plan of care. Please let me know if there are questions or concerns regarding this plan of care. Physician Signature: Date :
--- NOTE | 2023-01-07 11:41 | HP.PTDCSUM ---
It has been my pleasure to treat CASEY ARRIAGA referred by Dr. Anastasia Willingham MD, with the diagnosis of CYSTOCELE - S/P RECONSTRUCTION for a total of 8 visit(s). Discharge Date: Please see the following information for a summary of their discharge status. Subjective: PATIENT REPORTS FOR THE LAST FOUR OR FIVE NIGHTS SHE HAS BEEN ABLE TO ONLY GET UP ONCE VS TWICE AT NIGHT TO VOID. SHE ALSO REPORTS SHE DOESN'T HAVE A FEELING OF ANYTHING DROPPING IN THE VAGINAL AREA ANY MORE EITHER. SHE DENIES DIFFICULTY EMPTYING HER BLADDER. IS TAKING ANTIBIOTIC FOR UTI SX'S THAT SHE REPORTS IS PRESCRIBED NEEDED BY PCP. DOING HEP AT LEAST ONCE A DAY AND KEGELS 2-3 TIMES A DAY. STATES SHE IS ABLE TO HOLD KEGELS X 9 SEC X 10 REPS NOW. % Improvement: 95 Objective/Function: PATIENT TOLERATED ALL INTERVENTIONS WELL TODAY. Goal 1:: PATIENT WILL SUCCESSFULLY DELAY VOIDING FOR 30 MINUTES WHEN URGENCY OCCURS Goal Progress: Goal Met Goal 2:: PATIENT WILL HAVE INCREASED PELVIC FLOOR MUSCLE STRENGTH GRADE TO 5/5 Goal Progress: Progressing Goal 3:: PATIENT WILL DEMONSTRATE 10 CONSISTENT AND CONSECUTIVE 10 SECOND PELVIC FLOOR MUSCLE CONTRACTIONS TO DEMONSTRATE IMPROVED PELVIC FLOOR ENDURANCE. Goal Progress: Progressing Goal 4:: DEVELOP HEALTHY FLUID INTAKE HABITS Goal Progress: Progressing Goal 5:: NORMALIZE VOIDING FREQUENCEY Goal Progress: Progressing Goal 6:: PATIENT WILL BE INDEP WITH A HEP/HOME INSTRUCTIONS FOR CONTINUED IMPROVEMENT ONCE FORMAL PHYSICAL THERAPY CONCLUDES. Goal Progress: Progressing Plan: FOLLOW UP IN 2 WKS. CONTINUE PER POC PROGRESSING STRENGTHENING TOLERATED. CONSIDER ELEVATOR EX NEXT VISIT. If there are questions or concerns regarding this patient's physical therapy, please feel free to call me at [phone]. Thank you for the referral of this patient. Sincerely, Xi Cueto, PT, Cert MDT
== END 2022-10-16 19:00 | disposition home or self-care (01) ==
LOC: PT 13:00
PROVIDERS: Referring Provider Urology; Visit Provider Urology
DX: N81.10 Cystocele, unspecified (principal); Z48.816 Encounter for surgical aftercare following surgery on the genitourinary system
CPT/HCPCS: 97162; 97164; 97530

== ENCOUNTER → 2022-10-27 | Outpatient (CLI) | payer MEDICARE, SELFPAY | END | disposition home or self-care (01) | PROVIDERS: Visit Provider Nurse Practitioner | DX: N39.3 Stress incontinence (female) (male) (principal) | CPT/HCPCS: 87077; 87086; 87088 ==

== ENCOUNTER → 2022-12-29 | Outpatient (CLI) | payer MEDICARE, SELFPAY | END | disposition home or self-care (01) | PROVIDERS: PCP Nurse Practitioner; Visit Provider Nurse Practitioner | DX: N39.3 Stress incontinence (female) (male) (principal) | CPT/HCPCS: 87077; 87086; 87088 ==